=== PATIENT | male | born 1960 | race Caucasian/White ===

== ENCOUNTER → 2023-08-24 09:49 | Outpatient (REF) | payer OTHER, SELFPAY | LOC: MRI 3T 09:49 | PROVIDERS: ATTENDING PHYSICIAN Urology | DX: R97.20 Elevated prostate specific antigen [PSA] (principal) | CPT/HCPCS: 72197; A9575 ==

== ENCOUNTER 2023-10-04 13:27 | Outpatient (RCR) | payer OTHER, SELFPAY | END 2023-10-04 23:59 | disposition home or self-care (01) | LOC: RPT 13:27 | PROVIDERS: ATTENDING PHYSICIAN Urology | DX: M62.89 Other specified disorders of muscle (principal); C61 Malignant neoplasm of prostate; Z73.6 Limitation of activities due to disability | CPT/HCPCS: 97161; 97530 ==

== ENCOUNTER 2023-11-02 06:16 | Day surgery (SDC) | payer OTHER, SELFPAY ==
[2023-10-27 09:53] VITALS: BMI 30.8
[2023-10-27 10:14] LABS: Hematocrit 41.5 % (39.0-52.0); Hemoglobin 13.9 g/dL (13.0-18.0); Mean Corp Hgb Conc. 33.5 g/dL (33.0-37.0); Mean Corpuscular Hgb 28.5 pg (27.0-31.0); Platelet Count 212 10^3/uL (130-400); Red Blood Cell Count 4.88 10^6/uL (4.70-6.10); Red Cell Dist. Width 13.2 % (11.5-14.5); White Blood Cell Count 7.8 10^3/uL (4.8-10.8)
[2023-10-27 10:15] LABS: Urine Albumin Negative (Neg - Trace); Urine Bilirubin Negative (Negative); Urine Character Clear (Clear); Urine Color Yellow; Urine Glucose Negative (Negative); Urine Ketone Negative (Negative); Urine Leukocyte Negative (Negative); Urine Nitrite Negative (Negative); Urine Occult Blood Negative (Negative); Urine Urobilinogen Negative (Neg - 1+)
[2023-10-27 10:17] LABS: APTT 27.4 Sec (23.4-35.0); INR 1.02; PT 13.2 Sec (11.4-14.6)
--- NOTE | 2023-10-30 09:05 | CM ---
Patient is scheduled for a Robotic Prostatectomy on 11/02/23. Spoke with patient prior to surgery via telephone to complete case management assessment and assess for discharge planning needs. Patient reports that he lives alone in a multi story home.
There are six (2-2-2) steps to enter and two flights of steps to his bedroom. He currently functions independently. He has no DME and has never had VN services. He has a prescription plan and uses [facility] in [place].
PCP is Isabelle Reece
Discussed discharge plans. Patient plans to return home at discharge. He states that no one will stay with him when he goes home. Discussed likely need for VN services and reviewed options. Patient selects VN.
[place] text sent to VN liaison, Tammy Leung, alerting her to surgery date and likely need for VN.
--- NOTE | 2023-10-31 08:26 | PTCARENOTE ---
Patients 10/13 A1C- 7.4- Tamela @ Dr. Sanderson office notified
--- NOTE | 2023-11-01 15:44 | VNURNOTE ---
Home Health Liaison spoke with patient after multiple messages had been left in past few days. Home Health Liaison spoke to patient at 1500 to discuss [facility] nurse visits, schedule and homebound status. Patient is agreeable and understands that visits
at home will be 2-3 x per week to assess and teach medical management and catheter care. Patient understands RN will not be coming daily to his home.
Patient is aware that [facility] will contact him for start of care in 1-2 days after discharge from .
[facility] referral completed in [facility].
[2023-11-02] VITALS (17 sets, daily range): BP systolic 83–144; BP diastolic 44–70; BMI 30.8
[2023-11-02 06:43] LABS: Glucose - Point of Care 118 mg/dl (70-99)
[2023-11-02] MEDS: NORMOSOL-R 1000 IV (06:43)
--- NOTE | 2023-11-02 11:22 | W.IMMPOSTOP ---
Surgical Immed Post Op Note
-
Primary Surgeon: Peffer
Assisting Surgeon: none
Pre-op Diagnosis: Prostate cancer
Post-op Diagnosis: same
Procedure Performed: Robotic radical prostatectomy, lymph node dissection
Anesthesia Type: general
Specimen / Cultures: Prostate, lymph nodes, negative frozen section
Estimated Blood Loss: 20cc
Complications: none
Operative Findings: no anastomosis leak
[2023-11-02 11:30] LABS: Glucose - Point of Care 185 mg/dl (70-99)
[2023-11-02] MEDS: DILAUDID 0.5 MG IV (11:40)
[2023-11-02] MEDS: TORADOL 15 MG IV ×2 (11:54→17:24)
[2023-11-02] MEDS: NSS 1000 IV ×2 (11:56→19:34)
[2023-11-02 12:02] LABS: Hematocrit 35.5 % (39.0-52.0); Hemoglobin 12.6 g/dL (13.0-18.0)
[2023-11-02 12:38] LABS: Blood Urea Nitrogen 20 mg/dl (9-20); Calcium 8.2 mg/dl (8.4-10.2); Carbon Dioxide 23 mmol/L (22-30); Chloride 104 mmol/L (98-107); Estimated Creatinine Clearance 67 ml/min; Glucose 176 mg/dl (70-99); Potassium 4.6 mmol/L (3.5-5.1); Sodium 134 mmol/L (135-145); eGFR > 60.00
[2023-11-02 13:51] LABS: Glucose - Point of Care 170 mg/dl (70-99)
[2023-11-02 16:48] LABS: Glucose - Point of Care 190 mg/dl (70-99)
[2023-11-02] MEDS: NOVOLOG FLEXPEN-LOW RESISTANCE 1 UNITS SC (16:51)
[2023-11-02] MEDS: SENOKOT 8.59999999999999964 MG PO (19:34)
[2023-11-02 21:21] LABS: Glucose - Point of Care 185 mg/dl (70-99)
[2023-11-03] MEDS: TORADOL 15 MG IV ×2 (00:57→06:07)
[2023-11-03 05:51] LABS: Hematocrit 34.1 % (39.0-52.0); Hemoglobin 11.9 g/dL (13.0-18.0); Mean Corp Hgb Conc. 34.9 g/dL (33.0-37.0); Mean Corpuscular Hgb 28.7 pg (27.0-31.0); Mean Corpuscular Volume 82.4 fL (80.0-94.0); Mean Platelet Volume 9.2 fL (7.4-10.4); Platelet Count 193 10^3/uL (130-400); Red Blood Cell Count 4.14 10^6/uL (4.70-6.10); Red Cell Dist. Width 13.2 % (11.5-14.5); White Blood Cell Count 12.7 10^3/uL (4.8-10.8)
[2023-11-03 06:15] LABS: Blood Urea Nitrogen 25 mg/dl (9-20); Calcium 8.6 mg/dl (8.4-10.2); Carbon Dioxide 19 mmol/L (22-30); Chloride 106 mmol/L (98-107); Estimated Creatinine Clearance 79 ml/min; Glucose 112 mg/dl (70-99); Potassium 4.4 mmol/L (3.5-5.1); Sodium 133 mmol/L (135-145); eGFR > 60.00
[2023-11-03 07:37] LABS: Glucose - Point of Care 116 mg/dl (70-99)
[2023-11-03 07:49] VITALS: BP 132/63
[2023-11-03] MEDS: ZESTRIL 10 MG PO (07:55)
[2023-11-03] MEDS: LIPITOR 10 MG PO (07:55)
[2023-11-03] MEDS: NORVASC 5 MG PO (07:55)
[2023-11-03] MEDS: SENOKOT 8.59999999999999964 MG PO (07:56)
[2023-11-03] MEDS: NOVOLOG FLEXPEN-LOW RESISTANCE SC (08:05)
--- NOTE | 2023-11-03 08:57 | W.PN.URO.CBU ---
Today's Communication / Plan
-
Discharge
Assessment / Plan
-
62M POD 1 s/p robotic prostatectomy
Discharge for today
Diagnosis
-
Date of Service: November 03, 2023
-
Patient Diagnosis:
Prostate cancer s/p robotic prostatectomy
Post Op Day:
Subjective
-
no pain
jorge diet
ambulated
Objective
-
Vital Signs
Temp Pulse Resp BP Pulse Ox
98.1 F 66 16 132/63 98
11/03/23 07:49 11/03/23 07:49 11/03/23 07:49 11/03/23 07:49 11/03/23 07:49
Intake and Output
11/02/23 11/03/23 11/04/23
06:59 06:59 06:59
Intake Total 1930 / 1930
Output Total 3980 / 3980
Balance -2049 / -2049
Intake:
Oral fluids 1680 / 1680
IV fluids (Total) 250 / 250
NSS @125 ML/HR 250 / 250
Output:
Urine, [place] 150 / 150
Urine, Voided 3830 / 3830
Laboratory Results
11/03/23 05:30
11/03/23 05:30
Physical Exam
-
General - well developed, well nourished, no acute distress
Chest - clear bilaterally
Abdomen - soft, non-tender, positive bowel sounds, no CVAT, no incisional pain or distention
[place] clear
Skin - warm & dry with no rash
Neuro - AOx3, no motor deficits
Extremities - no clubbing, no cyanosis, no edema
Incision - clean, dry
Dressing - clean, dry, intact
--- NOTE | 2023-11-03 09:55 | CM ---
Met with patient at the bedside; initial assessment and Case Management Consult completed
Pharmacy verified: [facility], [address]
Family Physician verified: Alfonso Torres DO; phone # [phone]; ; Contacted Admissions to update chart in [employer]
Outpatient Observation Status Form explained and signed @ 0950
Patient lives alone in a multilevel townhouse;6 steps to enter; 13 steps between floors; railing present; powder room on the 1st floor; 2nd floor bath has tub w/shower
PLOF: patient reports he is independent with ambulation, stairs, and ADLs; drives; works pack operator
DME: none
SNF utilization history: none
Transportation: neighbor will provide ride home
Plan: Discharge to home (faith intact) today with Home Health services from [facility] Visiting Nurse
[2023-11-03 10:54] LABS: Glycohemoglobin (HgbA1c) 7.1 % (4.0-5.6)
== END 2023-11-03 10:13 | disposition home or self-care (01) ==
LOC: SDS 06:16
PROVIDERS: ATTENDING PHYSICIAN Urology; FAMILY PHYSICIAN Family Medicine
DX: C61 Malignant neoplasm of prostate (principal); C77.5 Secondary and unspecified malignant neoplasm of intrapelvic lymph nodes
CPT/HCPCS: 55866; 38571; 88305; 88307; 88309; 36415; 80048; 81003; 82962; 83036; 85014; 85018; 85027; 85610; 85730; 86850; 86900; 86901; 93005

== ENCOUNTER → 2024-03-08 06:13 | Day surgery (SDC) | payer OTHER, SELFPAY ==
[2024-03-08 07:09] LABS: Glucose - Point of Care 104 mg/dl (70-99)
== END ==
LOC: GI 06:13
PROVIDERS: ATTENDING PHYSICIAN Internal Medicine Gastroenterology
DX: Z12.11 Encounter for screening for malignant neoplasm of colon (principal); K64.8 Other hemorrhoids; D12.4 Benign neoplasm of descending colon; D12.5 Benign neoplasm of sigmoid colon; D12.8 Benign neoplasm of rectum; K63.5 Polyp of colon; Z86.0100 Personal history of colon polyps, unspecified
CPT/HCPCS: 45380; 45385; 88305; 82962